=== PATIENT | female | born 1960 | race Caucasian/White ===

== ENCOUNTER 2017-04-09 11:13 | Inpatient (IN) | payer BC, OTHER ==
[2017-04-09] VITALS (7 sets, daily range): BP systolic 130–191; BP diastolic 70–92; PULSE 72–98; RESP 16; TEMP 97.9; O2SAT 96–100
[~2017-04-09 11:13] MED LIST: 1-ME1LIQ PO; ALBU1AER INH; ASPI81 CHEW; B COTAB6 PO; LATA.005%O OU; LEVO.025 PO; LISI-360 PO; PRED1SOL OP; RED600TA PO; VITA400C28
--- NOTE | 2017-04-09 11:41 | PD ---
HPI Chief Complaint: Allergic/Adverse Reaction Time Seen by Provider: 11:26 Travel History International Travel<30 days: No Contact w/Intl Traveler<30days: No Traveled to known affect area: No History of Present Illness HPI This is a 56-year-old female who presents to the emergency department with swelling of her lips and some difficulty swallowing that started this morning for about one hour, constant, moderate severity with no associated trouble breathing. She's never had symptoms like this before. She took 25 mg of Benadryl prior to arrival but she's not improved. She says she feels a little bit anxious. She's never had an allergic reaction before. She does take lisinopril which she's been taking for years. 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 Patient has had 2 open-heart surgeries with a one-vessel CABG Arthritis: Yes Asthma: Yes Blood Disorders: No Anxiety: No Depression: No Heart Rhythm Problems: No Cancer: No Cardiovascular Problems: Yes High Cholesterol: Yes Chemotherapy: No Chest Pain: Yes Congestive Heart Failure: No COPD: No Diabetes: No Diminished Hearing: No Endocrine: No Glaucoma: Yes Hypertension: Yes Immune Disorder: No Musculoskeletal: Yes (ARTHRITIS) Neurologic: No Psychiatric: No Reproductive: No Respiratory: Yes Integumentary: Yes Radiation Therapy: No Sleep Apnea: No Thyroid Disease: Yes Past Surgical History Eye Surgery: Yes (R eye corneal transplant/3 lens implant) Thoracic Surgery: Yes ([place] SLEEVE/AAA R/T MARFANS SYNDROME) Tonsillectomy: Yes Social History Alcohol Use: Yes (RARE/SOCIAL) Tobacco Use: No Substance Use: No Allergies-Medications (Allergen,Severity, Reaction): Coded Allergies: acetazolamide (Unverified Allergy, Severe, 02/07/17) IN HIGH DOSES lisinopril (Verified Allergy, Severe, 04/09/17) ANGIOEDEMA Reported Meds & Prescriptions Reported Meds & Active Scripts Active Reported Levothyroxine Sodium 25 Mcg Tab 25 Mcg PO DAILY 1-Methyl 2-Pyrrolidinone (1-Methyl 2-Pyrrolidone (Bulk)) 10 Mg Tab 1 Tab PO DAILY B Complete (B-Complex W/Biotin & Folic Aci) Tab 1 PO DAILY Vitamin D (Cholecalciferol) 400 Unit Cap 1 DAILY Red Yeast Rice (Red Yeast Rice Extract) 600 Mg Tab 600 Mg PO DAILY Proair Hfa (Albuterol Sulfate) 8.5 Gm Aero 2 Puff INH Q4H PRN * SHAKE WELL BEFORE USE * Aspirin 81 Mg Tab 81 Mg CHEW DAILY Xalatan (Latanoprost) 0.005 % Soln 1 Drop OU HS Prednisol (Prednisolone Sodium Phosphate) 1 % Johanne 1 Drop OP DAILY Review of Systems Except as stated in HPI: all other systems reviewed are Neg Physical Exam Narrative GENERAL:Well appearing, no acute distress SKIN: Focused skin assessment warm and dry. HEAD: Atraumatic. Normocephalic. EYES: Pupils equal and round. No injection or drainage. ENT: Angioedema of the upper lip. Edema of the left posterior pharynx including the tonsillar pillar and uvula. Normal voice. NECK: Trachea midline. CARDIOVASCULAR: Regular rate and rhythm. No murmur appreciated. RESPIRATORY: Clear to auscultation. Breath sounds equal bilaterally. No wheezing. GASTROINTESTINAL: Abdomen soft, non-tender, nondistended. MUSCULOSKELETAL: No obvious deformities. NEUROLOGICAL: Awake and alert. No obvious cranial nerve deficits. Moving all extremities. PSYCHIATRIC: Appropriate mood and affect; insight and judgment normal. Data Data Last Documented VS Vital Signs Date Time Temp Pulse Resp B/P (MAP) Pulse Ox O2 Delivery O2 Flow Rate FiO2 04/09/17 11:28 82 18 99 Room Air 04/09/17 11:15 97.9 191/92 (125) Orders Orders Diphenhydramine Inj (Benadryl Inj) (04/09/17 11:45) Methylprednisolone So Succ Inj (Solumedr (04/09/17 11:45) Famotidine Inj (Pepcid Inj) (04/09/17 11:45) Complete Blood Count With Diff (04/09/17 11:34) Comprehensive Metabolic Panel (04/09/17 11:34) ^ Insert Iv (04/09/17 11:34) Admit Order (Ed Use Only) (04/09/17 ) Vital Signs (Adult) Q4H (04/09/17 12:56) Diet Npo (04/09/17 Lunch) Activity Oob With Assistance (04/09/17 12:56) Notify Dr: Other (04/09/17 12:56) Admit To Inpatient (04/09/17 ) Vital Signs (Adult) Q1H (04/09/17 12:55) Seamless Tube Mill Operator / Telemetry DOREEN.Q8H (04/09/17 12:55) Intake + Output DOREEN.Q8H (04/09/17 12:55) Sodium Chloride 0.9% Flush (Ns Flush) (04/09/17 13:00) Sodium Chloride 0.9% Flush (Ns Flush) (04/09/17 21:00) Albuterol-Ipratropium Neb (Duoneb Neb) (04/09/17 16:00) Chlorhexidine 0.12% Liq (Peridex 0.12% L (04/09/17 20:00) Famotidine Inj (Pepcid Inj) (04/09/17 21:00) Complete Blood Count With Diff (04/10/17 06:00) Comprehensive Metabolic Panel (04/10/17 06:00) Resp Pulse Oximetry (04/09/17 ) Scd Bilateral/Knee High DOREEN.BID (04/09/17 12:55) Black Bilateral/Knee High DOREEN.QSHIFT (04/09/17 13:00) ^ Initiate Protocol (04/09/17 12:55) Instruction (04/09/17 12:55) Misc Nursing Information (04/09/17 13:00) Chlorhexidine 2% Cloth (Chlorhexidine 2% (04/10/17 04:00) Chlorhexidine 2% Cloth (Chlorhexidine 2% (04/09/17 13:00) Mrsa Pcr Surveillance (04/09/17 12:55) Inpatient Certification (04/09/17 ) Labs Laboratory Tests Test 04/09/17 11:46 White Blood Count 11.4 TH/MM3 Red Blood Count 4.83 MIL/MM3 Hemoglobin 14.6 GM/DL Hematocrit 42.7 % Mean Corpuscular Volume 88.3 FL Mean Corpuscular Hemoglobin 30.2 PG Mean Corpuscular Hemoglobin Concent 34.2 % Red Cell Distribution Width 13.1 % Platelet Count 299 TH/MM3 Mean Platelet Volume 8.6 FL Neutrophils (%) (Auto) 74.4 % Lymphocytes (%) (Auto) 18.2 % Monocytes (%) (Auto) 6.3 % Eosinophils (%) (Auto) 0.4 % Basophils (%) (Auto) 0.7 % Neutrophils # (Auto) 8.5 TH/MM3 Lymphocytes # (Auto) 2.1 TH/MM3 Monocytes # (Auto) 0.7 TH/MM3 Eosinophils # (Auto) 0.0 TH/MM3 Basophils # (Auto) 0.1 TH/MM3 CBC Comment DIFF FINAL Differential Comment Blood Urea Nitrogen 14 MG/DL Creatinine 0.82 MG/DL Random Glucose 95 MG/DL Total Protein 7.9 GM/DL Albumin 4.2 GM/DL Calcium Level 9.2 MG/DL Alkaline Phosphatase 72 U/L Aspartate Amino Transf (AST/SGOT) 36 U/L Alanine Aminotransferase (ALT/SGPT) 36 U/L Total Bilirubin 0.4 MG/DL Sodium Level 134 MEQ/L Potassium Level 4.0 MEQ/L Chloride Level 100 MEQ/L Carbon Dioxide Level 22.4 MEQ/L Anion Gap 12 MEQ/L Estimat Glomerular Filtration Rate 72 ML/MIN MDM Medical Decision Making Medical Screen Exam Complete: Yes Emergency Medical Condition: Yes Interpretation(s) Afebrile, mild tachycardia, hypertensive Mild leukocytosis Electrolytes are reassuring Differential Diagnosis Angioedema, acute allergic reaction, anaphylaxis, airway obstruction Narrative Course This is a 56-year-old female who presents to the emergency department with angioedema involving her lip and her posterior pharynx. On arrival she was given Benadryl, IV steroids and famotidine. Her symptoms seem to be worsening. Plan for admission to the intensive care unit. Currently in the emergency department she is protecting her airway and I don't think she requires elective intubation at this time. I discussed the case with Dr. Barney who admitted the patient. Critical Care Narrative Aggregate critical care time was 35 minutes. Time to perform other separately billable procedures was not included in the critical care time. My time did not include minutes spent treating any other patients simultaneously or on activities that did not directly contribute to the patient's treatment. The services I provided to this patient were to treat and/or prevent clinically significant deterioration that could result in: Disability, I provided critical care services requiring my management, as noted below: Chart data review, documentation time, medication orders and management, vital sign assessments/reviewing monitor data, ordering and reviewing lab tests, ordering and interpreting/reviewing x-rays and diagnostic studies, care of the patient and discussion of the patient with the admitting physicians. Diagnosis Primary Impression: Angioedema Qualified Codes: T78.3XXA - Angioneurotic edema, initial encounter Admitting Information Admitting Physician Requests: Admit Ruth Whitten MD Apr 09, 2017 11:41
[2017-04-09] MEDS ORDERED: diphenhydrAMINE HCL 50 MG/ML VIAL IV PUSH ONE (11:45)
[2017-04-09] MEDS ORDERED: FAMOTIDINE 20 MG/2 ML VIAL IV PUSH ONE (11:45)
[2017-04-09] MEDS ORDERED: methylPREDNISolone SOD SUCC 125 MG/2 ML VIAL IV PUSH ONE (11:45)
[2017-04-09 12:03] LABS: AUTOMATED NEUTROPHIL # 8.5 TH/MM3 (1.8-7.7); BASOPHIL # 0.1 TH/MM3 (0-0.2); BASOPHIL % 0.7 % (0.0-2.0); EOSINOPHIL % 0.4 % (0.0-4.0); HEMATOCRIT 42.7 % (35.0-46.0); HEMO FLAGS DIFF FINAL; LYMPH % 18.2 % (9.0-44.0); LYMPHOCYTE # 2.1 TH/MM3 (1.0-4.8); MEAN CELL VOLUME 88.3 FL (80.0-100.0); MEAN CORPUSCULAR HEMOGLOBIN 30.2 PG (27.0-34.0); MEAN CORPUSCULAR HGB CONC 34.2 % (32.0-36.0); MONO % 6.3 % (0.0-8.0); NEUT % 74.4 % (16.0-70.0); PLATELET COUNT 299 TH/MM3 (150-450); RED BLOOD COUNT 4.83 MIL/MM3 (4.00-5.30); RED CELL DISTRIBUTION WIDTH 13.1 % (11.6-17.2); WHITE BLOOD COUNT 11.4 TH/MM3 (4.0-11.0)
[2017-04-09 12:22] LABS: ANION GAP 12 MEQ/L (5-15); AST (GOT) 36 U/L (15-37); BICARBONATE 22.4 MEQ/L (21.0-32.0); BLOOD UREA NITROGEN 14 MG/DL (7-18); CHLORIDE 100 MEQ/L (98-107); GLOMERULAR FILTRATION RATE 72 ML/MIN (>89); SODIUM (NA) 134 MEQ/L (136-145)
[2017-04-09 12:25] LABS: ALKALINE PHOSPHATASE 72 U/L (45-117); ALT (GPT) 36 U/L (10-53); TOTAL BILIRUBIN ADULT 0.4 MG/DL (0.2-1.0)
[2017-04-09] MEDS: diphenhydrAMINE HCL 50 MG/ML VIAL IV SCH ×2 (13:00→17:48)
[2017-04-09] MEDS ORDERED: MISCELLANEOUS NURSING INFORMATION XX SCH (13:00)
[2017-04-09] MEDS ORDERED: CHLORHEXIDINE GLUCONATE 2 % 1 PACK (2 CLOTHS) TOP PRN (13:00)
[2017-04-09] MEDS ORDERED: SODIUM CHLORIDE 0.9% FLUSH 10 ML FLUSH IV FLUSH PRN (13:00)
[2017-04-09] MEDS ORDERED: OMNI1SUS RIGHT EYE (14:15)
[2017-04-09] MEDS ORDERED: FURO20TA PO (14:15)
[2017-04-09] MEDS ORDERED: LATA0.002 EACH EYE (14:15)
[2017-04-09] MEDS ORDERED: LEVO25TA4 PO (14:15)
[2017-04-09] MEDS ORDERED: CARD240C6 PO (14:15)
[2017-04-09] MEDS ORDERED: BRIN1SUS2 EACH EYE (14:15)
[2017-04-09] MEDS ORDERED: ASPI81CH CHEW (14:15)
--- NOTE | 2017-04-09 14:54 | HHI.HP ---
HPI Service Critical Care Medicine Primary Care Physician Unknown Admission Diagnosis angioedema Diagnosis: (1) Angioedema Diagnosis: Principal (2) Respiratory insufficiency Diagnosis: Principal (3) Marfans syndrome Diagnosis: Secondary (4) Coronary artery disease, non-occlusive Diagnosis: Secondary (5) Valvular incompetence Diagnosis: Secondary (6) Asthma Diagnosis: Secondary (7) Hypertension Diagnosis: Secondary (8) Hyperlipemia Diagnosis: Secondary (9) Insomnia Diagnosis: Secondary (10) Hx of aortic root repair Diagnosis: Secondary Chief Complaint: Angioedema most likely JAYESH-I induced Travel History International Travel<30 Days: No Contact w/Intl Traveler <30 Da: No Traveled to Known Affected Are: No History of Present Illness This is a 56-year-old female with history of Marfan's syndrome, history of aortic root repair, possible mitral valve prolapse, hypertension, asthma who presented to the emergency department with swelling of her lips and difficulty swallowing. Since morning she had been on jayesh inhibitors at least 2 years on lisinopril. Never had angioedema before. In the ER was evaluated by Dr. Gonzalez who noticed upper lip swelling and edema the posterior pharyngeal wall. Patient received 125 mg of Solu-Medrol 1, Benadryl 25 mg IV 1, and famotidine 20 mg IV time x1. Critical care medicine was admitted for admission for acute angioedema with airway compromise. I evaluated the patient in the ED. She appears mildly anxious. Upper lip is significantly swollen and there was posterior pharyngeal wall edema also by limited exam. I have started scheduled IV Solu-Medrol Benadryl and famotidine. Review of Systems ROS Limitations: Other (as per HPI) Past Family Social History Allergies: Coded Allergies: acetazolamide (Unverified Allergy, Severe, 02/07/17) IN HIGH DOSES lisinopril (Verified Allergy, Severe, 04/09/17) ANGIOEDEMA Past Medical History Marfan syndrome Mitral valve prolapse/regurgitation Coronary artery disease Hypertension Hypothyroidism Asthma Past Surgical History [place] sleeve aortic root repair CABG Bilateral lens implant Reported Medications Levothyroxine Sodium 25 Mcg Tab 25 Mcg PO DAILY 1-Methyl 2-Pyrrolidinone (1-Methyl 2-Pyrrolidone (Bulk)) 10 Mg Tab 1 Tab PO DAILY B Complete (B-Complex W/Biotin & Folic Aci) Tab 1 PO DAILY Vitamin D (Cholecalciferol) 400 Unit Cap 1 DAILY Red Yeast Rice (Red Yeast Rice Extract) 600 Mg Tab 600 Mg PO DAILY Proair Hfa (Albuterol Sulfate) 8.5 Gm Aero 2 Puff INH Q4H PRN Aspirin 81 Mg Tab 81 Mg CHEW DAILY Xalatan (Latanoprost) 0.005 % Soln 1 Drop OU HS Prednisol (Prednisolone Sodium Phosphate) 1 % Johanne 1 Drop OP SUNDEEP Active Ordered Medications Received IV Solu-Medrol Benadryl and IV famotidine in the ED Family History Reviewed Social History No tobacco use Occasional alcohol Physical Exam Vital Signs Vital Signs Date Time Temp Pulse Resp B/P (MAP) Pulse Ox O2 Delivery O2 Flow Rate FiO2 04/09/17 11:28 82 18 99 Room Air 04/09/17 11:15 97.9 98 16 191/92 (125) 96 Physical Exam GENERAL:Well appearing, in mild distress SKIN: Warm and dry. HEAD: Atraumatic. Normocephalic. EYES: Pupils equal and round. No injection or drainage. ENT: Angioedema of the upper lip. Mild Edema of the posterior pharynx NECK: Trachea midline. CARDIOVASCULAR: Regular rate and rhythm. Mild midsystolic murmur heard. Well- healed sternotomy scar RESPIRATORY: Clear to auscultation. Breath sounds equal bilaterally. No wheezing. GASTROINTESTINAL: Abdomen soft, non-tender, nondistended. MUSCULOSKELETAL: No obvious deformities. NEUROLOGICAL: Awake and alert. No obvious cranial nerve deficits. Moving all extremities. Laboratory Laboratory Tests Test 04/09/17 11:46 White Blood Count 11.4 Red Blood Count 4.83 Hemoglobin 14.6 Hematocrit 42.7 Mean Corpuscular Volume 88.3 Mean Corpuscular Hemoglobin 30.2 Mean Corpuscular Hemoglobin Concent 34.2 Red Cell Distribution Width 13.1 Platelet Count 299 Mean Platelet Volume 8.6 Neutrophils (%) (Auto) 74.4 Lymphocytes (%) (Auto) 18.2 Monocytes (%) (Auto) 6.3 Eosinophils (%) (Auto) 0.4 Basophils (%) (Auto) 0.7 Neutrophils # (Auto) 8.5 Lymphocytes # (Auto) 2.1 Monocytes # (Auto) 0.7 Eosinophils # (Auto) 0.0 Basophils # (Auto) 0.1 CBC Comment DIFF FINAL Differential Comment Blood Urea Nitrogen 14 Creatinine 0.82 Random Glucose 95 Total Protein 7.9 Albumin 4.2 Calcium Level 9.2 Alkaline Phosphatase 72 Aspartate Amino Transf (AST/SGOT) 36 Alanine Aminotransferase (ALT/SGPT) 36 Total Bilirubin 0.4 Sodium Level 134 Potassium Level 4.0 Chloride Level 100 Carbon Dioxide Level 22.4 Anion Gap 12 Estimat Glomerular Filtration Rate 72 Result Diagram: 04/09/17 1146 04/09/17 1146 Caprini VTE Risk Assessment Caprini VTE Risk Assessment: No/Low Risk (score <= 1) Caprini Risk Assessment Model Point Value = 1 Point Value = 2 Point Value = 3 Point Value = 5 Age 41-60 Minor surgery BMI > 25 kg/m2 Swollen legs Varicose veins or History of unexplained or recurrent spontaneous Oral contraceptives or hormone replacement Sepsis (< 1 month) Serious lung disease, including pneumonia (< 1 month) Abnormal pulmonary function Acute myocardial infarction Congestive heart failure (< 1 month) History of inflammatory bowel disease Medical patient at bed rest Age 61-74 Arthroscopic surgery Major open surgery (> 45 min) Laparoscopic surgery (> 45 min) Malignancy Confined to bed (> 72 hours) Immobilizing plaster cast Central venous access Age >= 75 History of VTE Family history of VTE Factor V Leiden Prothrombin [id number] Lupus anticoagulant Anticardiolipin antibodies Elevated serum homocysteine Heparin-induced thrombocytopenia Other congenital or acquired thrombophilia Stroke (< 1 month) Elective arthroplasty Hip, pelvis, or leg fracture Acute spinal cord injury (< 1 month) Prophylaxis Regimen Total Risk Factor Score Risk Level Prophylaxis Regimen 0-1 Low Early ambulation 2 Moderate Order ONE of the following: *Sequential Compression Device (SCD) *Heparin 5000 units SQ BID 3-4 Higher Order ONE of the following medications: *Heparin 5000 units SQ TID *Enoxaparin/Lovenox 40 mg SQ daily (WT < 150 kg, CrCl > 30 mL/min) *Enoxaparin/Lovenox 30 mg SQ daily (WT < 150 kg, CrCl > 10-29 mL/min) *Enoxaparin/Lovenox 30 mg SQ BID (WT < 150 kg, CrCl > 30 mL/min) AND/OR *Sequential Compression Device (SCD) 5 or more Highest Order ONE of the following medications: *Heparin 5000 units SQ TID (Preferred with Epidurals) *Enoxaparin/Lovenox 40 mg SQ daily (WT < 150 kg, CrCl > 30 mL/min) *Enoxaparin/Lovenox 30 mg SQ daily (WT < 150 kg, CrCl > 10-29 mL/min) *Enoxaparin/Lovenox 30 mg SQ BID (WT < 150 kg, CrCl > 30 mL/min) AND *Sequential Compression Device (SCD) Assessment and Plan Assessment and Plan ASSESSMENT: Angioedema Respiratory insufficiency Marfan syndrome Probable Mitral valve prolapse/regurgitation History of aortic root repair Coronary artery disease Hypertension Hypothyroidism Asthma PLAN: NEURO: - Keep patient on no sedation RESP/ENT: - Angioedema most likely secondary to JAYESH inhibitor - Received 125 mg Solu-Medrol, IV Benadryl 25 mg and famotidine 20 mg - Continue scheduled Solu-Medrol and Benadryl and famotidine - Patient is aware that she may need endotracheal intubation if there is worsening angioedema, but currently able to talk in full sentences CV: - Hold aspirin for now. IV fluids to KVO - Hold all home antihypertensives GI: - Nothing by mouth, IV famotidine : - Monitor renal function closely. No indication for Bahena ID: - No indication for antibiotics at one infection ENDO: - Replace electrolytes as needed PROPH: - Bilateral lower extremity SCDs. Avoid chemical DVT prophylaxis. IV famotidine LINES: - Utilize peripheral IVs, central line if needed CCT 40 MIN Patient is having increasing sensation of throat swelling. She is at high risk of decompensation, and intubation and even probable emergency cricothyroidotomy if she decompensates and loses her airway. Admitted to ICU and monitor closely. I will inform container coordinator anesthesiologist also Problem Qualifiers (1) Angioedema: Qualified Codes: T78.3XXA - Angioneurotic edema, initial encounter (2) Asthma: Sabrina Barney MD Apr 09, 2017 14:54
[2017-04-09] MEDS: RESP: ALBUTEROL 2.5 MG/IPRATROPIUM 0.5 MG NEB (SCH) INH ×2 (15:23→20:45)
[2017-04-09] MEDS: methylPREDNISolone SOD SUCC 125 MG/2 ML VIAL IV PUSH SCH (17:48)
[2017-04-09] MEDS: CHLORHEXIDINE 0.12% (ORAL KIT) 15 ML CUP MT SCH (20:00)
[2017-04-09] MEDS ORDERED: LATANOPROST 0.005% OPHT SOLN 2.5 ML BTL EACH EYE SCH (21:00)
[2017-04-09] MEDS: FAMOTIDINE 20 MG/2 ML VIAL IV PUSH SCH (21:06)
[2017-04-09] MEDS: SODIUM CHLORIDE 0.9% FLUSH 10 ML FLUSH IV FLUSH SCH (21:06)
[2017-04-09] MEDS ORDERED: BRINZOLAMIDE BRIMONIDINE EACH EYE SCH (22:00)
[2017-04-10] VITALS (11 sets, daily range): BP systolic 112–140; BP diastolic 62–86; PULSE 67–82; RESP 18–35; TEMP 98.2–98.3; O2SAT 93–99
[2017-04-10] MEDS: methylPREDNISolone SOD SUCC 125 MG/2 ML VIAL IV PUSH SCH ×3 (01:00→12:00)
[2017-04-10] MEDS: diphenhydrAMINE HCL 50 MG/ML VIAL IV SCH ×3 (01:00→12:29)
[2017-04-10] MEDS: RESP: ALBUTEROL 2.5 MG/IPRATROPIUM 0.5 MG NEB (SCH) INH ×2 (02:54→09:10)
[2017-04-10] MEDS ORDERED: CHLORHEXIDINE GLUCONATE 2 % 1 PACK (2 CLOTHS) TOP SCH (04:00)
[2017-04-10 05:48] LABS: AUTOMATED NEUTROPHIL # 11.6 TH/MM3 (1.8-7.7); BASOPHIL % 0.1 % (0.0-2.0); HEMO FLAGS DIFF FINAL; LYMPH % 5.1 % (9.0-44.0); LYMPHOCYTE # 0.6 TH/MM3 (1.0-4.8); MEAN CELL VOLUME 87.9 FL (80.0-100.0); MEAN CORPUSCULAR HGB CONC 34.1 % (32.0-36.0); MONO % 0.8 % (0.0-8.0); PLATELET COUNT 284 TH/MM3 (150-450); RED BLOOD COUNT 4.66 MIL/MM3 (4.00-5.30); RED CELL DISTRIBUTION WIDTH 13.2 % (11.6-17.2); WHITE BLOOD COUNT 12.4 TH/MM3 (4.0-11.0)
[2017-04-10 06:06] LABS: ANION GAP 10 MEQ/L (5-15); AST (GOT) 13 U/L (15-37); BLOOD UREA NITROGEN 15 MG/DL (7-18); CHLORIDE 104 MEQ/L (98-107); GLOMERULAR FILTRATION RATE 82 ML/MIN (>89); POTASSIUM 3.7 MEQ/L (3.5-5.1); SODIUM (NA) 136 MEQ/L (136-145)
[2017-04-10 06:12] LABS: ALKALINE PHOSPHATASE 63 U/L (45-117); ALT (GPT) 27 U/L (10-53); TOTAL BILIRUBIN ADULT 0.4 MG/DL (0.2-1.0)
[2017-04-10] MEDS: CHLORHEXIDINE 0.12% (ORAL KIT) 15 ML CUP MT SCH (08:00)
--- NOTE | 2017-04-10 08:00 | HHI.CCPN ---
Subjective Remarks/Hospital Course This is a 56-year-old female with history of Marfan's syndrome, history of aortic root repair, possible mitral valve prolapse, hypertension, asthma who presented to the emergency department with swelling of her lips and difficulty swallowing. Since morning she had been on jayesh inhibitors at least 2 years on lisinopril. Never had angioedema before. In the ER was evaluated by Dr. Gonzalez who noticed upper lip swelling and edema the posterior pharyngeal wall. Patient received 125 mg of Solu-Medrol 1, Benadryl 25 mg IV 1, and famotidine 20 mg IV time x1. Critical care medicine was admitted for admission for acute angioedema with airway compromise. I evaluated the patient in the ED. She appears mildly anxious. Upper lip is significantly swollen and there was posterior pharyngeal wall edema also by limited exam. I have started scheduled IV Solu-Medrol Benadryl and famotidine. SUBJ 04/10: Significant clinical improvement with scheduled IV Solu-Medrol and Benadryl. Only mild swelling of the upper lip now. No dysphagia no difficulty in talking Objective Vital Signs Date Time Temp Pulse Resp B/P (MAP) Pulse Ox O2 Delivery O2 Flow Rate FiO2 04/10/17 06:00 74 04/10/17 04:00 98.2 21 135/65 (88) 93 04/09/17 20:44 21 04/09/17 15:30 Room Air Intake and Output 04/10/17 04/10/17 04/11/17 08:00 16:00 00:00 Intake Total 0 ml Balance 0 ml Result Diagram: 04/10/17 0456 04/10/17 0456 Objective Remarks GENERAL:Well appearing, in no distress SKIN: Warm and dry. HEAD: Atraumatic. Normocephalic. EYES: Pupils equal and round. No injection or drainage. ENT: Mild Angioedema of the upper lip, improved overall NECK: Trachea midline. CARDIOVASCULAR: Regular rate and rhythm. Mild midsystolic murmur heard. Well- healed sternotomy scar RESPIRATORY: Clear to auscultation. Breath sounds equal bilaterally. No wheezing. GASTROINTESTINAL: Abdomen soft, non-tender, nondistended. MUSCULOSKELETAL: No obvious deformities. NEUROLOGICAL: Awake and alert. No obvious cranial nerve deficits. Moving all extremities. A/P Assessment and Plan ASSESSMENT: Angioedema Respiratory insufficiency Marfan syndrome Probable Mitral valve prolapse/regurgitation History of aortic root repair Coronary artery disease Hypertension Hypothyroidism Asthma PLAN: NEURO: - Keep patient on no sedation RESP/ENT: - Angioedema most likely secondary to JAYESH inhibitor - Received 125 mg Solu-Medrol, IV Benadryl 25 mg and famotidine 20 mg - Continue scheduled Solu-Medrol and Benadryl and famotidine. On DC, place on Medrol Dosepak, also Benadryl and famotidine for 5 days CV: - Hold aspirin for now. IV fluids to KVO - Hold all home antihypertensives GI: - Regular diet, IV famotidine : - Monitor renal function closely. No indication for Bahena ID: - No indication for antibiotics at one infection ENDO: - Replace electrolytes as needed PROPH: - Bilateral lower extremity SCDs. Avoid chemical DVT prophylaxis. IV famotidine LINES: - Utilize peripheral IVs, central line if needed Level 2 Significant improvement in angioedema with IV steroids IV famotidine and IV Benadryl. Probable discharge home in the afternoon after completion of 24 hours ICU monitoring for angioedema with airway compromise Sabrina Barney MD Apr 10, 2017 08:00
--- NOTE | 2017-04-10 08:00 | HHI.DS ---
Discharge Summary Admission Date Apr 09, 2017 at 12:58 Admitting Diagnosis angioedema (1) Angioedema ICD Code: T78.3XXA - Angioneurotic edema, initial encounter Diagnosis: Principal Status: Acute (2) Respiratory insufficiency ICD Code: R06.89 - Other abnormalities of breathing Diagnosis: Principal (3) Marfans syndrome ICD Code: Q87.40 - Marfans syndrome Diagnosis: Secondary Status: Acute (4) Coronary artery disease, non-occlusive ICD Code: I25.10 - Coronary artery disease, non-occlusive Diagnosis: Secondary Status: Acute (5) Valvular incompetence ICD Code: I38 - Valvular incompetence Diagnosis: Secondary Status: Acute (6) Asthma ICD Code: J45.909 - Asthma Diagnosis: Secondary Status: Acute (7) Hypertension ICD Code: I10 - Hypertension Diagnosis: Secondary Status: Acute (8) Hyperlipemia ICD Code: E78.5 - Hyperlipemia Diagnosis: Secondary Status: Acute (9) Insomnia ICD Code: G47.00 - Insomnia Diagnosis: Secondary Status: Acute (10) Hx of aortic root repair ICD Code: Z98.89 - Hx of aortic root repair Diagnosis: Secondary Status: Acute Procedures No procedures Brief History This is a 56-year-old female with history of Marfan's syndrome, history of aortic root repair, possible mitral valve prolapse, hypertension, asthma who presented to the emergency department with swelling of her lips and difficulty swallowing. Since morning she had been on wayne inhibitors at least 2 years on lisinopril. Never had angioedema before. In the ER was evaluated by Dr. Gonzalez who noticed upper lip swelling and edema the posterior pharyngeal wall. Patient received 125 mg of Solu-Medrol 1, Benadryl 25 mg IV 1, and famotidine 20 mg IV time x1. Critical care medicine was admitted for admission for acute angioedema with airway compromise. I evaluated the patient in the ED. She appears mildly anxious. Upper lip is significantly swollen and there was posterior pharyngeal wall edema also by limited exam. I have started scheduled IV Solu-Medrol Benadryl and famotidine. CBC/BMP: 04/10/17 0456 04/10/17 0456 Significant Findings Laboratory Tests Test 04/09/17 11:46 04/09/17 17:20 04/10/17 04:56 White Blood Count 11.4 TH/MM3 (4.0-11.0) 12.4 TH/MM3 (4.0-11.0) Neutrophils (%) (Auto) 74.4 % (16.0-70.0) 94.0 % (16.0-70.0) Neutrophils # (Auto) 8.5 TH/MM3 (1.8-7.7) 11.6 TH/MM3 (1.8-7.7) Sodium Level 134 MEQ/L (136-145) Estimat Glomerular Filtration Rate 72 ML/MIN (>89) 82 ML/MIN (>89) Lymphocytes (%) (Auto) 5.1 % (9.0-44.0) Lymphocytes # (Auto) 0.6 TH/MM3 (1.0-4.8) Random Glucose 149 MG/DL (74-106) Aspartate Amino Transf (AST/SGOT) 13 U/L (15-37) PE at Discharge GENERAL:Well appearing, in no distress SKIN: Warm and dry. HEAD: Atraumatic. Normocephalic. EYES: Pupils equal and round. No injection or drainage. ENT: Mild Angioedema of the upper lip, improved overall NECK: Trachea midline. CARDIOVASCULAR: Regular rate and rhythm. Mild midsystolic murmur heard. Well- healed sternotomy scar RESPIRATORY: Clear to auscultation. Breath sounds equal bilaterally. No wheezing. GASTROINTESTINAL: Abdomen soft, non-tender, nondistended. MUSCULOSKELETAL: No obvious deformities. NEUROLOGICAL: Awake and alert. No obvious cranial nerve deficits. Moving all extremities. Hospital Course This is a 56-year-old female with history of Marfan's syndrome, history of aortic root repair, possible mitral valve prolapse, hypertension, asthma who presented to the emergency department with swelling of her lips and difficulty swallowing. Since morning she had been on wayne inhibitors at least 2 years on lisinopril. Never had angioedema before. In the ER was evaluated by Dr. Gonzalez who noticed upper lip swelling and edema the posterior pharyngeal wall. Patient received 125 mg of Solu-Medrol 1, Benadryl 25 mg IV 1, and famotidine 20 mg IV time x1. Critical care medicine was admitted for admission for acute angioedema with airway compromise. I evaluated the patient in the ED. She appears mildly anxious. Upper lip is significantly swollen and there was posterior pharyngeal wall edema also by limited exam. I have started scheduled IV Solu-Medrol Benadryl and famotidine. SUBJ 04/10: Significant clinical improvement with scheduled IV Solu-Medrol and Benadryl. Only mild swelling of the upper lip now. No dysphagia no difficulty in talking. Patient can be discharged home in the afternoon after completing 24 hours of ICU observation for angioedema with airway compromise. She will be discharged home on Medrol Dosepak, Benadryl 25 mg every 6 hours for 5 days, famotidine 20 mg by mouth twice a day for 5 days. Patient instructed clearly not to take anymore medications in the group of wayne inhibitors or angiotensin receptor blockers Pt Condition on Discharge: Stable Discharge Disposition: Discharge Home Discharge Instructions DIET: Follow Instructions for: Heart Healthy Diet Continued Medications: Aspirin (Aspirin) 81 Mg Chew 81 MG CHEW DAILY, TAB 0 Refills Brinzolamide-Brimonidine Opth Drops (Simbrinza Opth Drops) 1-0.2% Susp 1 DROP EACH EYE Q8HR for Intraocular Pressure, #1 BOTTLE 0 Refills Diltiazem CD 24 HR (Cardizem CD 24 HR) 240 Mg Caper 240 MG PO DAILY, #30 CAP 0 Refills Furosemide (Furosemide) 20 Mg Tab 20 MG PO DAILY, #30 TAB 0 Refills Latanoprost Opth Drops (Latanoprost Opth Drops) 0.005% Drops 1 DROP EACH EYE HS for Glaucoma, #2.5 ML 0 Refills Refrigerate until opened. Levothyroxine (Levothyroxine) 25 Mcg Tab 25 MCG PO DAILY for Thyroid, #30 TAB 0 Refills Prednisolone Acetate Opth Drops (Omnipred Opth Drops) 1% Susp 1 DROP RIGHT EYE DAILY for Inflammation, #1 BOTTLE 0 Refills Additional Information Make appointment with PCP in 24 hours DO NO TAKE wayne inhibitors or angiotensin receptor blockers MEDROL DOSE PACK- TAKE INSTRUCTED BENADRYL 25 MG PO Q6HR FOR 5 DAYS (OVER THE COUNTER) FAMOTIDINE 20 MG PO BID FOR 5 DAYS (OVER THE COUNTER) Sabrina Barney MD Apr 10, 2017 08:00
[2017-04-10] MEDS: FAMOTIDINE 20 MG/2 ML VIAL IV PUSH SCH (08:16)
[2017-04-10] MEDS: SODIUM CHLORIDE 0.9% FLUSH 10 ML FLUSH IV FLUSH SCH (08:16)
[2017-04-10] MEDS ORDERED: LEVOTHYROXINE SODIUM 25 MCG TAB PO SCH (09:00)
[2017-04-10] MEDS ORDERED: prednisoLONE ACETATE 1% OPHT SUSP 5 ML BTL EACH EYE SCH (09:00)
[2017-04-10] MEDS ORDERED: predniSONE 20 MG TAB PO ONE (12:30)
[2017-04-10] MEDS ORDERED: diphenhydrAMINE HCL 25 MG CAP PO ONE (13:30)
[2017-04-10] MEDS ORDERED: FAMOTIDINE 20 MG TAB PO SCH (21:00)
== END 2017-04-10 13:31 | disposition home or self-care (01) | DRG 916 ==
LOC: NEPC 11:13 → NEDA 12:58 → HIMN 17:10
PROVIDERS: ADMIT Internal Medicine; ATTEND Internal Medicine
DX: T78.3XXA Angioneurotic edema, initial encounter (principal); Q87.418 Marfan syndrome with other cardiovascular manifestations; Q87.42 Marfan syndrome with ocular manifestations; T46.4X5A Adverse effect of angiotensin-converting-enzyme inhibitors, initial encounter; R06.89 Other abnormalities of breathing; J45.909 Unspecified asthma, uncomplicated; H40.9 Unspecified glaucoma; I10 Essential (primary) hypertension; I25.10 Atherosclerotic heart disease of native coronary artery without angina pectoris; G47.00 Insomnia, unspecified; E03.9 Hypothyroidism, unspecified; M19.90 Unspecified osteoarthritis, unspecified site; Z94.7 Corneal transplant status; Z95.1 Presence of aortocoronary bypass graft
CPT/HCPCS: 80053; 85025; 87641; 94664; 96374; 96375; J1200; J2930; J7512